=== PATIENT | female | born 1995 | race African-American/Black ===

== ENCOUNTER 2018-11-04 14:53 | Inpatient (IN) | payer SELFPAY ==
[2018-11-04 15:24] LABS: #Lymphocytes 1.2 thou/uL (1.20-3.40); #Monocytes 0.9 thou/uL (0.11-0.59); %Basophils 0.2 % (0.0-1.0); %Eosinophils 0.2 % (0.0-10.0); %Lymphocytes 16.3 % (21.0-51.0); %Monocytes 12.9 % (0.0-10.0); %Neutrophils 70.3 % (42.0-75.0); Hemoglobin 13.2 g/dL (12.0-16.0); Mean Corpuscular Hemoglobin 30.9 pg (27.0-31.0); Mean Corpuscular Volume 93.5 fL (78.0-98.0); Mean Platelet Volume 9.2 fL (7.4-10.4); Platelet Count 152 thou/uL (130-400); RBC Distribution Width 12.4 % (11.5-14.5); Red Blood Cell (RBC) Count 4.28 mill/uL (4.20-5.40); White Blood Cell (WBC) Count 7.1 thou/uL (4.8-10.8)
[2018-11-04] MEDS ORDERED: Ondansetron PF 4 MG/2 ML Vial ONE (15:24)
[2018-11-04] MEDS ORDERED: Morphine 4 MG/ML VIAL ONE (15:24)
[2018-11-04] MEDS ORDERED: cefTRIAXone\\ROCEPHIN 2 GM VIAL ONE (15:34)
[2018-11-04 15:37] LABS: BHCG - Serum Negative (NEGATIVE); Pregs Control Background? CLEAR/WHITE (CLR/WHITE); Pregs Control Bar Appear? YES (CONTROL BAR)
[2018-11-04 15:49] LABS: ALT (SGPT) 348 U/L (8-55); AST (SGOT) 338 U/L (5-34); Albumin 3.7 g/dL (3.5-5.0); Alkaline Phosphatase 144 U/L (40-150); Anion Gap 15 mmol/L (10-20); BUN (Urea Nitrogen) 4 mg/dL (7.0-18.7); Bilirubin, Total 1.1 mg/dL (0.2-1.2); CK (CPK) 290 U/L (29-168); Calc. Creatinine Clearance 0 mL/min (70-130); Calcium 9.2 mg/dL (7.8-10.44); Carbon Dioxide 23 mmol/L (22-29); Chloride 97 mmol/L (98-107); Estimated GFR-MDRD 54; Globulin 3.9 g/dL (2.4-3.5); Glucose 140 mg/dL (70-105); Lipase 11 U/L (8-78); Protein, Total 7.6 g/dL (6.0-8.3); Sodium 132 mmol/L (136-145)
[2018-11-04 15:54] LABS: Potassium 2.9 mmol/L (3.5-5.1)
--- NOTE | 2018-11-04 16:02 | CT ---
CT ABDOMEN AND PELVIS WITHOUT CONTRAST: HISTORY: Left flank pain radiating to the left lower quadrant. Hematuria. Chills. FINDINGS: Absence of oral and IV contrast reduces the sensitivity of the exam, particularly for evaluation of s olid organs involved. The lung bases are clear. No free air or free fluid is seen in the abdomen or pelvis. Tiny gallstones are present. There are tiny calculi in the left kidney. No calculi are se en in the right kidney, either ureter, or the urinary bladder. No hydroureteronephrosis is seen on e ither side. The appendix is normal. Uterus and ovaries are present. No acute osseous abnormalities are seen. IMPRESSION: 1. Tiny, nonobstructing left renal calculi. 2. Cholelithiasis. POS: [facility]
[2018-11-04] MEDS ORDERED: Potassium Chloride 20 MEQ TAB ONE (16:10)
[2018-11-04] MEDS ORDERED: Ketorolac Tromethamine 30 MG/ML VIAL ONE (16:32)
--- NOTE | 2018-11-04 16:54 | RAD ---
Portable chest: HISTORY: Abdominal pain COMPARISON: none FINDINGS: Lung greenberg are clear. Heart and mediastinum appear unremarkable. Vascularity is normal. Visualized osseous structures unremarkable. IMPRESSION: No acute finding
[2018-11-04 17:02] LABS: Bilirubin Negative (Negative); Blood, Urine Trace (Negative); Clarity CLEAR (Clear); Glucose, Urine (Dipstick) Negative (Negative); Leukocyte Small (Negative); Nitrite Negative (Negative); Protein, Urine (Dipstick) 30 mg/dL (Neg-Trace); Specific Gravity, Urine 1.008 (1.002-1.036); Urobilinogen > or = 8.0 mg/dL (0.2-1.0)
[2018-11-04 17:04] LABS: Bacteria/HPF None Seen HPF (None Seen); Hyaline Casts/LPF 0-3 HYALINE CAST LPF (0-3 Hyaline); Pathc Cast-AUWi Flag 0.27 (0-2.49); Squamous Epithelial 0-3 HPF (0-3)
[2018-11-04 19:22] LABS: Lactic Acid 1.3 mmol/L (0.5-2.2)
[2018-11-04] MEDS ORDERED: Sodium Chloride 0.9% 1,000 ML IV SCH (19:37)
[2018-11-04] MEDS ORDERED: Ondansetron PF 4 MG/2 ML Vial IVP PRN (19:37)
[2018-11-04] MEDS ORDERED: Acetaminophen 325 MG TAB PO PRN (19:37)
[2018-11-04] MEDS ORDERED: Ondansetron ODT 4 MG TAB SL PRN (19:37)
[2018-11-04 19:52] VITALS: BMI 31.5
[2018-11-04] MEDS ORDERED: Cyclobenzaprine 10 MG TAB PO SCH (22:45)
[2018-11-04] MEDS ORDERED: NS 0.9% w/ 40 MEQ KCL 1,000 ML IV SCH (22:45)
[2018-11-04] MEDS ORDERED: Potassium Chloride 10 MEQ in Premix Bag 1 BAG IVPB SCH (22:45)
[2018-11-04] MEDS: Morphine 4 MG/ML VIAL SLOW IVP PRN (22:48)
--- NOTE | 2018-11-05 02:26 | HP ---
CHIEF COMPLAINT: Left flank pain, fevers. HISTORY OF PRESENT ILLNESS: The patient is a 23-year-old female, who comes into the hospital with complaints of 3 days of left-sided flank pain, nausea, and some fevers. The patient stated that for the past 3 days, she has been having some left-sided flank pain radiating to her left lower quadrant. She has also had some dysuria, also had some fevers and chills. She also reports to be having some constipation. Denies any recent oral medications. Denies any history of kidney stones. Denies any sick contacts. The patient states that her pain is sharp in nature and radiates from her left flank area to her left abdomen area and it feels like a sharp stabbing pain. She has been taking Tylenol at home, which has not really been helping her pain. PAST MEDICAL HISTORY: She has no significant past medical history. FAMILY HISTORY: History of high blood pressure and diabetes. PAST SURGICAL HISTORY: She has no surgical history. ALLERGIES: SHE HAS NO KNOWN DRUG ALLERGIES. MEDICATIONS: She takes none. SOCIAL HISTORY: She smokes a pack a day. Denies any alcohol use or drug use. She is a full code. Lives with her family. REVIEW OF SYSTEMS: All negative except for the ones mentioned above in the HPI. PHYSICAL EXAMINATION: VITAL SIGNS: Temperature 98.0, 89, 18, 98% on room air, and 97/68. GENERAL: She is awake, alert, and oriented x3, appears in mild distress. HEENT: Normocephalic and atraumatic. No lymphadenopathy noted. Pupils are equal and reactive to light. CV: S1 and S2 present. No murmurs, rubs, or gallops. LUNGS: Clear to auscultation. No rhonchi or wheezes noted. ABDOMEN: Soft. Bowel sounds are present x2. She does have pain upon palpation to her left lower quadrant and left upper quadrant and some mild pain around her epigastric area. She also has pain upon palpation to her left flank area. NEUROVASCULAR: No focal deficits noted. SKIN: No cuts, lesions or bruises noted. LABORATORY RESULTS: As of the following: She has a white count of 7.1, hemoglobin of 13.2, hematocrit of 40.0, and platelets of 152. Chemistry; sodium of 132, potassium of 2.9, BUN of 4, and creatinine 1.22. AST is 338, ALT of 348, CK of 290. test was negative. Bilirubin was normal. Lactic acid was 3.7. ASSESSMENT AND PLAN: The patient is a very pleasant 23-year-old female, who comes into the hospital with complaints of abdominal pain. 1. Sepsis, unclear etiology, possibly could be from urinary tract infection. Her urine has been cultured and sent. I will start on prophylactic antibiotics. She did have CT of abdomen and pelvis that indicated a nonobstructing left renal calculi. Otherwise, she has some cholelithiasis. I will also start her on some IV hydration, give her some pain medications. Blood cultures have been collected. We will continue to monitor. 2. Acute kidney injury. We will hydrate her and see if that improves. We will also monitor intake and output. 3. Hypokalemia. We will replace the potassium and add some potassium in her IV. 4. Elevated LFTs. I will get a right upper quadrant ultrasound. We will also check hepatitis panel. The patient denies taking any [id number] medications and she is not on any statins. 5. Deep venous thrombosis prophylaxis. We will put the patient on some SCDs. 6. Her symptoms could be viral versus bacterial, possibility of urinary tract infection. However, her urine culture is pending. We will continue to monitor her and start her on some broad-spectrum antibiotics and start her on some IV fluids, and continue to monitor her. Thank you very much. Job ID: [id number]
[2018-11-05] MEDS ORDERED: Ondansetron PF 4 MG/2 ML Vial IVP PRN (05:43)
[2018-11-05] MEDS ORDERED: Acetaminophen 325 MG TAB PO PRN (05:43)
[2018-11-05 06:25] LABS: HBCM Index 0.11 S/CO (0-0.79); HBSAg Index 0.35 S/CO (0-0.99); Hep A IgM AB Non-Reactive (NonReactive); Hep A IgM S/CO 0.18 S/CO (0-0.79); Hep B Surf Ag Non-Reactive S/CO (NonReactive); Hep C IgG Ab Non-Reactive (NonReactive); Hep C Index 0.08 S/CO (0-0.79); Hepatitis B Core IgM Abs Non-Reactive (NonReactive)
[2018-11-05] MEDS ORDERED: Ondansetron ODT 4 MG TAB PO PRN (07:29)
[2018-11-05] MEDS ORDERED: Diabetic Tussin 200 MG/10 ML UDCUP PO PRN (07:29)
[2018-11-05] MEDS ORDERED: Zolpidem Tartrate 5 MG TAB PO PRN (07:29)
[2018-11-05] MEDS ORDERED: Artificial Tears 18 DROP/0.9 ML EA EYE PRN (07:29)
[2018-11-05] MEDS ORDERED: Loratadine 10 MG TAB PO PRN (07:29)
[2018-11-05] MEDS ORDERED: Sodium Chloride 0.65% Nasal 44 ML BOT EA NARE PRN (07:29)
[2018-11-05] MEDS ORDERED: Eucerin (Mineral Oil/Petrolatum,White) 30 gm Jar TOP PRN (07:29)
[2018-11-05] MEDS ORDERED: Calcium Carbonate 500 MG ChewTAB PO PRN (07:29)
[2018-11-05] MEDS ORDERED: Loperamide HCl 2 MG CAP PO PRN (07:29)
[2018-11-05] MEDS ORDERED: Cepastat Lozenges 1 LOZ PO PRN (07:29)
--- NOTE | 2018-11-05 07:37 | ULT ---
GALLBLADDER ULTRASOUND: CLINICAL INDICATION: Elevated liver function enzymes. FINDINGS: No focal hepatic lesion. There is evidence of cholelithiasis with associated mild, posterior acousti c shadowing. Gallbladder wall, as visualized, is within normal limits. The common duct measures 3 m m, normal. Ruiz's sign is reported as negative by the heel shaver. No ascites. IMPRESSION: Cholelithiasis. No acute cholecystitis is evident, sonographically. Correlate with clinical assessm ent. POS: ED
[2018-11-05] MEDS: Senokot S 8.6-50 MG TAB PO SCH ×2 (08:15→19:59)
[2018-11-05] MEDS: NS 0.9% w/ 40 MEQ KCL 1,000 ML IV SCH ×2 (08:20→16:47)
--- NOTE | 2018-11-05 10:57 | PDOC.PN ---
- Subjective Encounter Start Date: 11/05/18 Encounter Start Time: 09:10 -: old records requested/rev pt has left side flank pain, dysuria, and fever - Objective Resuscitation Status - Order Detail: 11/05/18 07:30 Resuscitation Status Routine Resuscitation Status: FULL: Full Resuscitation MAR Reviewed: Yes Vital Signs & Weight: Vital Signs (12 hours) Temp Pulse Resp BP Pulse Ox 11/05/18 08:04 99.8 F H 95 16 114/75 96 11/05/18 08:00 96 11/05/18 04:00 98.7 F 79 16 104/73 95 11/05/18 00:27 103.1 F H 106 H 16 104/67 98 Weight Weight 201 lb 8 oz I&O: 11/04/18 11/05/18 11/06/18 06:59 06:59 06:59 Intake Total 1635 400 Balance 1635 400 Result Diagrams: 11/04/18 15:19 11/04/18 15:19 Radiology Reviewed by me: Yes (US abdomen noted) EKG Reviewed by me: Yes Phys Exam - Physical Examination Constitutional: NAD HEENT: PERRLA, moist MMs, sclera anicteric Neck: no JVD, supple Respiratory: no wheezing, no rales, no rhonchi Cardiovascular: RRR, no significant murmur, no rub Gastrointestinal: soft, no distention, positive bowel sounds left CVA tenderness pt does not have any RUQ tenderness Musculoskeletal: no edema, pulses present Neurological: non-focal, normal sensation, moves all 4 limbs Lymphatic: no nodes Psychiatric: normal affect, A&O x 3 Skin: no rash, normal turgor Dx/Plan (1) Acute pyelonephritis Code(s): N10 - ACUTE PYELONEPHRITIS Status: Acute (2) MICHEAL (acute kidney injury) Code(s): N17.9 - ACUTE KIDNEY FAILURE, UNSPECIFIED Status: Acute (3) Abnormal LFTs Code(s): R94.5 - ABNORMAL RESULTS OF LIVER FUNCTION STUDIES Status: Acute (4) Hypokalemia Code(s): E87.6 - HYPOKALEMIA Status: Acute (5) Lactic acidosis Code(s): E87.2 - ACIDOSIS Status: Acute (6) Sepsis Code(s): A41.9 - SEPSIS, UNSPECIFIED ORGANISM Status: Acute (7) Cholelithiases Code(s): K80.20 - CALCULUS OF GALLBLADDER W/O CHOLECYSTITIS W/O OBSTRUCTION Status: Chronic (8) Obesity (BMI 30.0-34.9) Code(s): E66.9 - OBESITY, UNSPECIFIED Status: Chronic - Plan cont current plan of care, continue antibiotics * continue IVF * continue rocephin and add levaquin * replace potassium * follow culture * pain control with morphin * repeat labs tomorrow. Review of Systems - Review of Systems Constitutional: fever, weakness. negative: chills, sweats, malaise, other Eyes: negative: Pain, Vision Change, Conjunctivae Inflammation, Eyelid Inflammation, Redness, Other ENT: negative: Ear Pain, Ear Discharge, Nose Pain, Nose Discharge, Nose Congestion, Mouth Pain, Mouth Swelling, Throat Pain, Throat Swelling, Other Respiratory: negative: Cough, Dry, Shortness of Breath, Hemoptysis, SOB with Excertion, Pleuritic Pain, Sputum, Wheezing Cardiovascular: negative: chest pain, palpitations, orthopnea, paroxysmal nocturnal dyspnea, edema, light headedness, other Gastrointestinal: Nausea. negative: Vomiting, Diarrhea, Constipation, Melena, Hematochezia, Other Genitourinary: Dysuria, Frequency Musculoskeletal: negative: Neck Pain, Shoulder Pain, Arm Pain, Back Pain, Hand Pain, Leg Pain, Foot Pain, Other Skin: negative: Rash, Lesions, Erick, Bruising, Other Neurological: negative: Weakness, Numbness, Incoordination, Change in Speech, Confusion, Seizures, Other - Medications/Allergies Allergies/Adverse Reactions: Allergies Allergy/AdvReac Type Severity Reaction Status Date / Time No Known Allergies Allergy Unverified 11/04/18 19:36 Medications: Current Medications Acetaminophen (Tylenol) 650 mg PO Q8H PRN PRN Reason: Mild-Moderate Pain (1-5) Last Admin: 11/05/18 08:32 Dose: 650 mg Artificial Tears (Tears Naturale) 2 drop EA EYE PRN PRN PRN Reason: Dry Eyes Bisacodyl (Dulcolax) 10 mg PO DAILYPRN PRN PRN Reason: Constipation Calcium Carbonate (Tums) 1,000 mg PO Q4H PRN PRN Reason: Heartburn or Indigestion Guaifenesin (Robitussin Sf) 200 mg PO Q4H PRN PRN Reason: Cough Ceftriaxone Sodium 1 gm/ (Sodium Chloride) 100 mls @ 200 mls/hr IVPB 1600 [facility] Levofloxacin 500 mg/ Device 100 mls @ 100 mls/hr IVPB 0800 [facility] Last Admin: 11/05/18 08:15 Dose: 100 mls Potassium Chloride/Sodium Chloride (Ns 0.9% W/ 40 Meq Kcl) 1,000 mls @ 125 mls/ hr IV .Q8H [facility] Last Admin: 11/05/18 08:20 Dose: Not Given Loperamide HCl (Imodium) 2 mg PO PRN PRN PRN Reason: Diarrhea/Loose Stools Loratadine (Claritin) 10 mg PO DAILYPRN PRN PRN Reason: Sinus Symptoms Mineral Oil/White Petrolatum (Eucerin Cream) 0 gm TOP BIDPRN PRN PRN Reason: Dry Skin Morphine Sulfate (Morphine) 4 mg SLOW IVP Q4H PRN PRN Reason: Mild-Moderate Pain (1-5) Last Admin: 11/04/18 22:48 Dose: 4 mg Ondansetron HCl (Zofran) 4 mg IVP Q6H PRN PRN Reason: Nausea/Vomiting Ondansetron HCl (Zofran Odt) 4 mg PO Q6H PRN PRN Reason: Nausea/Vomiting Senna/Docusate Sodium (Senokot S) 1 tab PO BID [facility] Last Admin: 11/05/18 08:15 Dose: 1 tab Sodium Chloride (Flush - Normal Saline) 10 ml IVF Q12HR [facility] Last Admin: 11/05/18 08:23 Dose: Not Given Sodium Chloride (Flush - Normal Saline) 10 ml IVF PRN PRN PRN Reason: Saline Flush Sodium Chloride ([place] Nasal [place] 0.65%) 0 ml EA NARE QIDPRN PRN PRN Reason: Nasal Congestion Throat Lozenges (Cepastat Lozenges) 1 bhakti PO Q2H PRN PRN Reason: Sore Throat Zolpidem Tartrate (Ambien) 5 mg PO HSPRN PRN PRN Reason: Insomnia
[2018-11-05] MEDS: Morphine 4 MG/ML VIAL SLOW IVP PRN (11:20)
[2018-11-05] MEDS ORDERED: Ketorolac Tromethamine 30 MG/ML VIAL IVP SCH (13:15)
[2018-11-05] MEDS: cefTRIAXone\\ROCEPHIN 1 GM in Sodium Chloride 0.9% 100 ML IVPB SCH (16:47)
[2018-11-05] MEDS: Ketorolac Tromethamine 30 MG/ML VIAL IVP PRN (19:57)
[2018-11-06] MEDS: NS 0.9% w/ 40 MEQ KCL 1,000 ML IV SCH ×3 (00:53→20:16)
[2018-11-06] MEDS: Ketorolac Tromethamine 30 MG/ML VIAL IVP PRN ×2 (03:58→19:44)
[2018-11-06 06:58] LABS: Band 4 % (5-11); Hemoglobin 11.9 g/dL (12.0-16.0); Lymphocytes 33 % (21-51); MDiff Complete? YES; Mean Corpuscular HGB CONC 32.4 g/dL (32.0-36.0); Mean Corpuscular Hemoglobin 30.8 pg (27.0-31.0); Mean Corpuscular Volume 94.9 fL (78.0-98.0); Mean Platelet Volume 9.7 fL (7.4-10.4); Monocytes 16 % (0-10); Neutrophil 47 % (42-75); Platelet Count 145 thou/uL (130-400); Platelet Morphology Comment Appears Adequate; RBC Distribution Width 12.5 % (11.5-14.5); RBC Morphology Normal; Red Blood Cell (RBC) Count 3.87 mill/uL (4.20-5.40); White Blood Cell (WBC) Count 4.9 thou/uL (4.8-10.8)
[2018-11-06 07:04] LABS: ALT (SGPT) 302 U/L (8-55); AST (SGOT) 267 U/L (5-34); Alkaline Phosphatase 154 U/L (40-150); Anion Gap 11 mmol/L (10-20); BUN (Urea Nitrogen) 5 mg/dL (7.0-18.7); Bilirubin, Total 0.6 mg/dL (0.2-1.2); Calc. Creatinine Clearance 161 mL/min (70-130); Calcium 8.5 mg/dL (7.8-10.44); Carbon Dioxide 20 mmol/L (22-29); Chloride 108 mmol/L (98-107); Estimated GFR-MDRD Greater than 90; Glucose 88 mg/dL (70-105); Potassium 4.2 mmol/L (3.5-5.1); Sodium 135 mmol/L (136-145)
[2018-11-06] MEDS: Senokot S 8.6-50 MG TAB PO SCH ×2 (08:52→20:14)
--- NOTE | 2018-11-06 10:42 | PDOC.PN ---
- Subjective Encounter Start Date: 11/06/18 Encounter Start Time: 09:40 this morning she was having headache and left side back pain, that improved with toradol, today she feels bloated and has some pain in RUQ - Objective Resuscitation Status - Order Detail: 11/05/18 07:30 Resuscitation Status Routine Resuscitation Status: FULL: Full Resuscitation MAR Reviewed: Yes Vital Signs & Weight: Vital Signs (12 hours) Temp Pulse Resp BP Pulse Ox 11/06/18 08:00 97.9 F 75 18 91/60 98 11/06/18 04:33 99.9 F H 85 16 101/66 99 Weight Admit Weight 201 lb 8 oz Weight 201 lb 8 oz I&O: 11/05/18 11/06/18 11/07/18 06:59 06:59 06:59 Intake Total 1635 4983 400 Balance 1635 4983 400 Result Diagrams: 11/06/18 06:21 11/06/18 06:21 Phys Exam - Physical Examination Constitutional: NAD HEENT: PERRLA, moist MMs, sclera anicteric Neck: no JVD, supple Respiratory: no wheezing, no rales, no rhonchi Cardiovascular: RRR, no significant murmur, no rub Gastrointestinal: soft, no distention, positive bowel sounds RUQ discomfort Musculoskeletal: no edema, pulses present Neurological: non-focal, normal sensation, moves all 4 limbs Lymphatic: no nodes Psychiatric: normal affect, A&O x 3 Skin: no rash, normal turgor Dx/Plan (1) MICHEAL (acute kidney injury) Code(s): N17.9 - ACUTE KIDNEY FAILURE, UNSPECIFIED Status: Acute (2) Abnormal LFTs Code(s): R94.5 - ABNORMAL RESULTS OF LIVER FUNCTION STUDIES Status: Acute (3) Hypokalemia Code(s): E87.6 - HYPOKALEMIA Status: Acute (4) Lactic acidosis Code(s): E87.2 - ACIDOSIS Status: Acute (5) Sepsis Code(s): A41.9 - SEPSIS, UNSPECIFIED ORGANISM Status: Acute (6) Cholelithiases Code(s): K80.20 - CALCULUS OF GALLBLADDER W/O CHOLECYSTITIS W/O OBSTRUCTION Status: Chronic (7) Obesity (BMI 30.0-34.9) Code(s): E66.9 - OBESITY, UNSPECIFIED Status: Chronic - Plan cont current plan of care, continue antibiotics * clinically improving * pain controlled * continue IVF * doubt has any gall bladder problem but will get expert opinion from GI as her LFT also abnormal * medication reviewed as below * symptomatic treatment * so far culture negative. Review of Systems - Review of Systems Eyes: negative: Pain, Vision Change, Conjunctivae Inflammation, Eyelid Inflammation, Redness, Other ENT: negative: Ear Pain, Ear Discharge, Nose Pain, Nose Discharge, Nose Congestion, Mouth Pain, Mouth Swelling, Throat Pain, Throat Swelling, Other Respiratory: negative: Cough, Dry, Shortness of Breath, Hemoptysis, SOB with Excertion, Pleuritic Pain, Sputum, Wheezing Cardiovascular: negative: chest pain, palpitations, orthopnea, paroxysmal nocturnal dyspnea, edema, light headedness, other Gastrointestinal: Nausea, Abdominal Pain. negative: Vomiting, Diarrhea, Constipation, Melena, Hematochezia, Other Genitourinary: negative: Dysuria, Frequency, Incontinence, Hematuria, Retention , Other Musculoskeletal: negative: Neck Pain, Shoulder Pain, Arm Pain, Back Pain, Hand Pain, Leg Pain, Foot Pain, Other Skin: negative: Rash, Lesions, Erick, Bruising, Other - Medications/Allergies Allergies/Adverse Reactions: Allergies Allergy/AdvReac Type Severity Reaction Status Date / Time No Known Allergies Allergy Unverified 11/04/18 19:36 Medications: Current Medications Acetaminophen (Tylenol) 650 mg PO Q8H PRN PRN Reason: Mild-Moderate Pain (1-5) Last Admin: 11/05/18 08:32 Dose: 650 mg Artificial Tears (Tears Naturale) 2 drop EA EYE PRN PRN PRN Reason: Dry Eyes Bisacodyl (Dulcolax) 10 mg PO DAILYPRN PRN PRN Reason: Constipation Calcium Carbonate (Tums) 1,000 mg PO Q4H PRN PRN Reason: Heartburn or Indigestion Guaifenesin (Robitussin Sf) 200 mg PO Q4H PRN PRN Reason: Cough Ceftriaxone Sodium 1 gm/ (Sodium Chloride) 100 mls @ 200 mls/hr IVPB 1600 [facility] Last Admin: 11/05/18 16:47 Dose: 100 mls Levofloxacin 500 mg/ Device 100 mls @ 100 mls/hr IVPB 0800 [facility] Last Admin: 11/06/18 08:50 Dose: 100 mls Potassium Chloride/Sodium Chloride (Ns 0.9% W/ 40 Meq Kcl) 1,000 mls @ 125 mls/ hr IV .Q8H [facility] Last Admin: 11/06/18 09:21 Dose: 1,000 mls Ketorolac Tromethamine (Toradol) 15 mg IVP Q6H PRN PRN Reason: Pain Stop: 11/10/18 19:01 Last Admin: 11/06/18 03:58 Dose: 15 mg Loperamide HCl (Imodium) 2 mg PO PRN PRN PRN Reason: Diarrhea/Loose Stools Loratadine (Claritin) 10 mg PO DAILYPRN PRN PRN Reason: Sinus Symptoms Mineral Oil/White Petrolatum (Eucerin Cream) 0 gm TOP BIDPRN PRN PRN Reason: Dry Skin Morphine Sulfate (Morphine) 4 mg SLOW IVP Q4H PRN PRN Reason: Mild-Moderate Pain (1-5) Last Admin: 11/05/18 11:20 Dose: 4 mg Ondansetron HCl (Zofran) 4 mg IVP Q6H PRN PRN Reason: Nausea/Vomiting Last Admin: 11/05/18 19:57 Dose: 4 mg Ondansetron HCl (Zofran Odt) 4 mg PO Q6H PRN PRN Reason: Nausea/Vomiting Senna/Docusate Sodium (Senokot S) 1 tab PO BID [facility] Last Admin: 11/06/18 08:52 Dose: 1 tab Sodium Chloride (Flush - Normal Saline) 10 ml IVF Q12HR [facility] Last Admin: 11/06/18 08:52 Dose: Not Given Sodium Chloride (Flush - Normal Saline) 10 ml IVF PRN PRN PRN Reason: Saline Flush Sodium Chloride ([place] Nasal [place] 0.65%) 0 ml EA NARE QIDPRN PRN PRN Reason: Nasal Congestion Throat Lozenges (Cepastat Lozenges) 1 bhakti PO Q2H PRN PRN Reason: Sore Throat Zolpidem Tartrate (Ambien) 5 mg PO HSPRN PRN PRN Reason: Insomnia
[2018-11-06] MEDS ORDERED: ISOVUE-370 76%-LOCM 1 ML ONE (11:20)
[2018-11-06] MEDS: cefTRIAXone\\ROCEPHIN 1 GM in Sodium Chloride 0.9% 100 ML IVPB SCH (16:51)
--- NOTE | 2018-11-06 19:17 | CT ---
CT ABDOMEN AND PELVIS WITH IV CONTRAST: Technique: Multiple axial tomograms were obtained through the abdomen and pelvis with IV enhancement. Oral contrast was administered. Indications: Left flank pain. Concern for pyelonephritis. History of gallstones and elevated liver fu nction test. Correlation made to noncontrast CT of 11-04-18. FINDINGS: Lung bases are clear. The liver, spleen, and pancreas appear unremarkable. Gallbladder appears unremarkable by CT. There ar e tiny densities in the dependent gallbladder, probably representing gallstones which have been previ ously confirmed on ultrasound. The adrenal glands are normal. Review of the urinary tract reveals an abnormal area of density involving the left lateral renal kathryn ex measuring up to 4 cm. This has a wedge shape on axial image. It is somewhat heterogeneous and low attenuation compared to the normal cortex. There is no evidence of hydronephrosis. There is no evidence of urinary tract calculus or obstruction . Urinary bladder is unremarkable. Small bowel loops are normal caliber. Appendix appears normal. There is prominent stool in the right colon and transverse colon. Nonspecific periaortic lymph nodes are seen. Increase in number of nodes with node sizes measuring up to 1 cm. Images through the pelvis revealed mildly prominent uterus. The adnexal regions are unremarkable. IMPRESSION: Abnormal area of attenuation in the left renal cortex measuring up to 4 cm. Considerations include fo arjun pyelonephritis. The wedge shaped defect could indicate infarct. Neoplasm cannot be excluded. If t here are clinical findings to suggest urinary tract infection, focal pyelonephritis would be suspecte d. Patient should be followed closely for developing renal abscess. Recommend urologic consultation a nd close follow up. POS: [facility]
[2018-11-06] MEDS: Bisacodyl 5 MG TAB PO PRN (20:14)
[2018-11-07] MEDS: NS 0.9% w/ 40 MEQ KCL 1,000 ML IV SCH ×5 (00:10→23:30)
[2018-11-07] MEDS: Ketorolac Tromethamine 30 MG/ML VIAL IVP PRN (06:34)
[2018-11-07 07:21] LABS: ALT (SGPT) 320 U/L (8-55); AST (SGOT) 206 U/L (5-34); Albumin 3.2 g/dL (3.5-5.0); Alkaline Phosphatase 174 U/L (40-150); Bilirubin, Direct 0.2 mg/dL (0.1-0.3); Bilirubin, Total 0.4 mg/dL (0.2-1.2); Protein, Total 6.5 g/dL (6.0-8.3)
[2018-11-07 07:45] LABS: Band 7 % (5-11); Hemoglobin 12.2 g/dL (12.0-16.0); Lymphocytes 60 % (21-51); MDiff Complete? YES; Mean Corpuscular HGB CONC 32.5 g/dL (32.0-36.0); Mean Corpuscular Hemoglobin 30.7 pg (27.0-31.0); Mean Corpuscular Volume 94.5 fL (78.0-98.0); Mean Platelet Volume 9.7 fL (7.4-10.4); Monocytes 5 % (0-10); Neutrophil 28 % (42-75); Platelet Count 193 thou/uL (130-400); Platelet Morphology Comment Appears Adequate; RBC Distribution Width 12.6 % (11.5-14.5); Red Blood Cell (RBC) Count 3.98 mill/uL (4.20-5.40); White Blood Cell (WBC) Count 6.2 thou/uL (4.8-10.8)
[2018-11-07] MEDS: Senokot S 8.6-50 MG TAB PO SCH ×2 (08:05→20:20)
--- NOTE | 2018-11-07 09:46 | CON ---
DATE OF CONSULTATION: 11/06/2018 REASON FOR CONSULT: Abnormal liver enzymes. HISTORY OF PRESENT ILLNESS: Ms. Colin is a 23-year-old female who has begun feeling sick about 5 days prior to admission with dysuria, frequency. She describes she was having burning with urination, did not want to urinate or have to urinate frequently. Gradually, she began to have some pain in her left flank along her spinal left side and then some quivering in the left flank more toward the front of the abdomen. She thought this was gas, so she tried to alleviate gas by passing gas, but this just got worse. She ultimately had fever about 102 or 103 at home per her report. She also had been constipated for several days and tried taking a laxative and she took some Tylenol. Her urine was also very dark toward the end of all this, but then pain became unrelenting, and she came to the emergency room. She denied having symptoms like this before, has had no overt hematuria that she saw. There is no known history of kidney stones. Here, she had a temperature of 102.9 on arrival, respirations 34, pulse 106, and blood pressure 123/72. Emergency room physician felt she was in a pretty severe amount of pain. It was reported she had CVA tenderness in the left on admission. She was started on broad-spectrum antibiotics. Blood and urine cultures were obtained, but it is unclear if these were obtained before the antibiotics were given. Her white count was 7.1, her platelets were 152. She had hypokalemia with potassium of 2.9, sodium 132, BUN and creatinine were 4 and 1.22. Her liver tests were noted to be up with a bilirubin of 1.1, AST of 338, ALT of 348, and alkaline phosphatase of 144. Her test was negative. She had a noncontrast CT scan of the abdomen and pelvis which was read out as showing a nonobstructing left kidney stone and gallstones. Because of that, she has received some Toradol, some Levaquin and cultures remain negative. Yesterday, she states when she was examined by the physician he pushed the right upper side and that hurts some. Now that, she has actually been able to eat, had no nausea or vomiting. Ultrasound did show gallstones and she denies ever having any symptoms of typical biliary colic such as postprandial pain or bloating, discomfort, nausea, vomiting, or radiation of pain to the back or on the right side or right flank. PAST MEDICAL HISTORY: None. MEDICATIONS AT HOME: None. PAST SURGICAL HISTORY: None. ALLERGIES: NONE. SOCIAL HISTORY: She does smoke a pack per day. Drinks alcohol occasionally, but does not use drugs. She lives with family. She has mom at the bedside. REVIEW OF SYSTEMS: Negative for dysphagia, odynophagia, melena, hematochezia, or hematemesis. Negative for weight loss or change in bowel function. No adverse symptoms of chronic biliary colic. PRESENT MEDICATIONS: 1. Current Tylenol. 2. Dulcolax. 3. Tums. 4. Toradol. 5. Imodium. 6. Zofran. 7. at 125 an hour. 8. Senokot p.r.n. PHYSICAL EXAMINATION: VITAL SIGNS: T max 101.3 yesterday at 2009 hours, 103.1 at midnight on the and 99.9 on 11/06 at 4:00 a.m., pulse 75, blood pressure 91/60 to 101/66. GENERAL: She is sitting up in bed. She is in no overt distress. Her conjunctivae and sclerae are clear. NECK: Supple without any adenopathy. LUNGS: Clear. HEART: Regular rate and rhythm. No murmurs. ABDOMEN: Soft. There is no rebound or guarding in the right upper quadrant. There is no Ruiz sign. There is no palpable hepatosplenomegaly. There is still tenderness in the left flank site, left flank. IMAGING: CT scan images were reviewed. I feel that the left kidney is a little bit enlarged and with talking to the radiologist, he felt the left kidney was edematous, but that would be consistent with pyelonephritis, but there was no overt ureteral obstruction. Ultrasound does show gallstones. No dilated biliary tree. This is similar to finding on her CAT scan. ASSESSMENT: 1. Likely pyelonephritis although cultures were negative to date. It is unclear if this is because antibiotics were given before cultures were obtained in the emergency room, at that time, it cannot be ascertained. In any event, she has continued to have fever and even yesterday evening had a fever but last night has not had any. She does not appear septic at this time. 2. Elevated liver enzymes. AST and ALT were 338, 348, dropping to 267 and 302 today with a mild elevation of alkaline phosphatase. She does have gallstones with no signs of biliary obstruction. No dilated biliary duct. I suspect this is still primary renal process and probably pyelonephritis. The elevated liver enzymes may be reactive. She does have gallstones, but no overt evidence of choledocholithiasis. No evidence of biliary colic. RECOMMENDATIONS: After reviewing her films with Radiology, they suggest re CT, noncontrast to better delineate what is going on with the left kidney, cultures have been negative. This is reasonable to give us more information about her hepatobiliary tree. If she begins to develop right upper quadrant pain or develops signs of sepsis, we could reconsider the possibility of cholangitis, but this does not seem consistent with any other symptoms thus far during hospitalization. Job ID: [id number]
--- NOTE | 2018-11-07 11:09 | PDOC.PN ---
- Subjective Encounter Start Date: 11/07/18 Encounter Start Time: 09:20 - Objective Resuscitation Status - Order Detail: 11/05/18 07:30 Resuscitation Status Routine Resuscitation Status: FULL: Full Resuscitation MAR Reviewed: Yes Vital Signs & Weight: Vital Signs (12 hours) Temp Pulse Resp BP Pulse Ox 11/07/18 08:00 97.9 F 73 16 91/65 99 Weight Admit Weight 201 lb 8 oz Weight 201 lb 8 oz I&O: 11/06/18 11/07/18 11/08/18 06:59 06:59 06:59 Intake Total 4983 2925 Balance 4983 2925 Result Diagrams: 11/07/18 06:03 11/06/18 06:21 Phys Exam - Physical Examination Constitutional: NAD HEENT: PERRLA, moist MMs, sclera anicteric Neck: no JVD, supple Respiratory: no wheezing, no rales, no rhonchi Cardiovascular: RRR, no significant murmur, no rub Gastrointestinal: soft, no distention, positive bowel sounds CVA tenderness on right side Musculoskeletal: no edema, pulses present Neurological: non-focal, normal sensation, moves all 4 limbs Psychiatric: normal affect, A&O x 3 Skin: no rash, normal turgor Dx/Plan (1) MICHEAL (acute kidney injury) Code(s): N17.9 - ACUTE KIDNEY FAILURE, UNSPECIFIED Status: Resolved (2) Abnormal LFTs Code(s): R94.5 - ABNORMAL RESULTS OF LIVER FUNCTION STUDIES Status: Acute (3) Hypokalemia Code(s): E87.6 - HYPOKALEMIA Status: Acute (4) Lactic acidosis Code(s): E87.2 - ACIDOSIS Status: Resolved (5) Sepsis Code(s): A41.9 - SEPSIS, UNSPECIFIED ORGANISM Status: Acute (6) Cholelithiases Code(s): K80.20 - CALCULUS OF GALLBLADDER W/O CHOLECYSTITIS W/O OBSTRUCTION Status: Chronic (7) Obesity (BMI 30.0-34.9) Code(s): E66.9 - OBESITY, UNSPECIFIED Status: Chronic - Plan cont current plan of care, plan discussed w/ family, continue antibiotics * will consult urology about opinion regarding abnormal CT finding. * updated to mother on phone * continue rocephin and levaquin * medication reviewed as below * symptomatic treatment * clinically improving, culture negative Review of Systems - Review of Systems ENT: negative: Ear Pain, Ear Discharge, Nose Pain, Nose Discharge, Nose Congestion, Mouth Pain, Mouth Swelling, Throat Pain, Throat Swelling, Other Respiratory: negative: Cough, Dry, Shortness of Breath, Hemoptysis, SOB with Excertion, Pleuritic Pain, Sputum, Wheezing Cardiovascular: negative: chest pain, palpitations, orthopnea, paroxysmal nocturnal dyspnea, edema, light headedness, other Gastrointestinal: negative: Nausea, Vomiting, Abdominal Pain, Diarrhea, Constipation, Melena, Hematochezia, Other Genitourinary: negative: Dysuria, Frequency, Incontinence, Hematuria, Retention , Other Musculoskeletal: negative: Neck Pain, Shoulder Pain, Arm Pain, Back Pain, Hand Pain, Leg Pain, Foot Pain, Other - Medications/Allergies Allergies/Adverse Reactions: Allergies Allergy/AdvReac Type Severity Reaction Status Date / Time No Known Allergies Allergy Unverified 11/04/18 19:36 Medications: Current Medications Acetaminophen (Tylenol) 650 mg PO Q8H PRN PRN Reason: Mild-Moderate Pain (1-5) Last Admin: 11/05/18 08:32 Dose: 650 mg Artificial Tears (Tears Naturale) 2 drop EA EYE PRN PRN PRN Reason: Dry Eyes Bisacodyl (Dulcolax) 10 mg PO DAILYPRN PRN PRN Reason: Constipation Last Admin: 11/06/18 20:14 Dose: 10 mg Calcium Carbonate (Tums) 1,000 mg PO Q4H PRN PRN Reason: Heartburn or Indigestion Last Admin: 11/06/18 20:14 Dose: 1,000 mg Guaifenesin (Robitussin Sf) 200 mg PO Q4H PRN PRN Reason: Cough Ceftriaxone Sodium 1 gm/ (Sodium Chloride) 100 mls @ 200 mls/hr IVPB 1600 KENN Last Admin: 11/06/18 16:51 Dose: 100 mls Levofloxacin 500 mg/ Device 100 mls @ 100 mls/hr IVPB 0800 KENN Last Admin: 11/07/18 08:05 Dose: 100 mls Potassium Chloride/Sodium Chloride (Ns 0.9% W/ 40 Meq Kcl) 1,000 mls @ 125 mls/ hr IV .Q8H KENN Last Admin: 11/07/18 08:06 Dose: Not Given Ketorolac Tromethamine (Toradol) 15 mg IVP Q6H PRN PRN Reason: Pain Stop: 11/10/18 19:01 Last Admin: 11/07/18 06:34 Dose: 15 mg Loperamide HCl (Imodium) 2 mg PO PRN PRN PRN Reason: Diarrhea/Loose Stools Loratadine (Claritin) 10 mg PO DAILYPRN PRN PRN Reason: Sinus Symptoms Mineral Oil/White Petrolatum (Eucerin Cream) 0 gm TOP BIDPRN PRN PRN Reason: Dry Skin Morphine Sulfate (Morphine) 4 mg SLOW IVP Q4H PRN PRN Reason: Mild-Moderate Pain (1-5) Last Admin: 11/05/18 11:20 Dose: 4 mg Ondansetron HCl (Zofran) 4 mg IVP Q6H PRN PRN Reason: Nausea/Vomiting Last Admin: 11/05/18 19:57 Dose: 4 mg Ondansetron HCl (Zofran Odt) 4 mg PO Q6H PRN PRN Reason: Nausea/Vomiting Senna/Docusate Sodium (Senokot S) 1 tab PO BID [facility] Last Admin: 11/07/18 08:05 Dose: 1 tab Sodium Chloride (Flush - Normal Saline) 10 ml IVF Q12HR [facility] Last Admin: 11/06/18 20:14 Dose: Not Given Sodium Chloride (Flush - Normal Saline) 10 ml IVF PRN PRN PRN Reason: Saline Flush Sodium Chloride ([place] Nasal [place] 0.65%) 0 ml EA NARE QIDPRN PRN PRN Reason: Nasal Congestion Throat Lozenges (Cepastat Lozenges) 1 bhakti PO Q2H PRN PRN Reason: Sore Throat Zolpidem Tartrate (Ambien) 5 mg PO HSPRN PRN PRN Reason: Insomnia
--- NOTE | 2018-11-07 12:02 | PRG ---
DATE OF SERVICE: 11/07/2018 SUBJECTIVE: Ms. Colin still has left flank pain. She denies any right upper quadrant pain or difficulty with eating. OBJECTIVE: VITAL SIGNS: Temperature max 101.3 on the 18th, last night 99.9, presently 97, pulse 73, blood pressure 91/65 to 104/72. ABDOMEN: Nontender. 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 LABORATORY DATA: White count 6.2, hemoglobin 12.2, platelet count 193. Sodium 135, potassium 4.2. Liver test today, AST 206, ALT 320, alkaline phosphatase 174. IMAGING STUDIES: CT scan of the abdomen and pelvis with contrast yesterday revealed normal liver, spleen, and pancreas. Gallbladder showed some small stones in the dependent portion, but no overt ductal dilatation or inflammation. The liver appeared abnormal. A 4 cm abnormal area of density wedge-shaped in the left kidney, which the radiologist felt was possibly early abscess versus infarction versus tumor with lymph nodes up to a centimeter in size in periaortic region. ASSESSMENT: Elevated liver enzymes. This maybe related to acute renal process and occasionally this can be seen. It could be generated from the liver, especially in case of infarction or abscess. There are gallstones with no signs of biliary obstruction. No biliary symptoms and no liver abnormalities. Hepatitis A, B, and C serology has been negative. RECOMMENDATIONS: I would have Urology evaluate this patient. ID may need to see her as well for consideration of IV antibiotics. Unfortunately, all cultures came back negative. It maybe that these were drawn and obtained after antibiotics were started. Even her liver function tests should be monitored. We will continue to follow along with you. Job ID: [id number]
--- NOTE | 2018-11-07 23:53 | CON ---
DATE OF CONSULTATION: 11/07/2018 REASON FOR CONSULTATION: Left-sided flank pain, pyelonephritis. HISTORY OF PRESENT ILLNESS: Ms. Colin is a 23-year-old female who presented to the emergency room on 11/04/2018 with fever, left flank pain, and dysuria. Since admission, her temperature has been as high as 103. She had a urine culture performed on admission, interestingly it was negative. She had classic signs and symptoms of left-sided pyelonephritis. CT scan also demonstrates an area of hypoattenuation consistent with focal pyelonephritis versus infarct. She has been treated with IV antibiotics and has improved significantly. She feels much better and her pain is much more tolerable now. She states the last time she had an infection was approximately 4 years ago when she was . She has no prior urologic history. PAST MEDICAL HISTORY: No chronic medical problems. PAST SURGICAL HISTORY: None. CHRONIC MEDICATIONS: None. SOCIAL HISTORY: She smokes one pack of cigarettes per day. Denies history of alcohol use. Denies drug use. 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 ALLERGIES: NO KNOWN DRUG ALLERGIES. REVIEW OF SYSTEMS: RESPIRATORY: No shortness of breath. CARDIOVASCULAR: No chest pain or palpitations. GASTROINTESTINAL: Denies chronic constipation or diarrhea. MUSCULOSKELETAL: No history of arthritis. PHYSICAL EXAMINATION: GENERAL: She is awake, alert. She is in no distress. VITAL SIGNS: Temperature 98.8, blood pressure 138/68, pulse 82. HEENT: Normocephalic, atraumatic. NECK: Supple without masses. CHEST: Clear to auscultation. CARDIOVASCULAR: Regular rate and rhythm. ABDOMEN: Soft, nontender. No palpable masses. Liver and spleen not palpable. No abdominal tenderness noted. LABORATORY DATA: Urine culture negative to date. CT scan, left renal hypoperfusion area versus focal pyelonephritis, left kidney. IMPRESSION: Signs, symptoms, and story most consistent with left-sided pyelonephritis. Interestingly, her urine culture is negative. She has responded quite well to antibiotic therapy. She does not have a long history of infections and in fact states the only other time she can remember infection was when she was approximately 4 years ago. RECOMMENDATION: 1. Levaquin 500 mg one p.o. daily x3 weeks. 2. Followup imaging in 3-4 weeks to ensure healing of the left kidney. Job ID: [id number]
[2018-11-08] MEDS: NS 0.9% w/ 40 MEQ KCL 1,000 ML IV SCH (05:31)
[2018-11-08 07:43] VITALS: BP 92/61; TEMP 98.7
[2018-11-08] MEDS: Senokot S 8.6-50 MG TAB PO SCH (08:18)
[2018-11-08] MEDS: Bisacodyl 5 MG TAB PO PRN (08:29)
--- NOTE | 2018-11-08 12:41 | PDOC.PN ---
- Subjective Encounter Start Date: 11/08/18 Encounter Start Time: 11:00 Patient seen and examined. No new complaints. No overnight events - Objective Resuscitation Status - Order Detail: 11/05/18 07:30 Resuscitation Status Routine Resuscitation Status: FULL: Full Resuscitation MAR Reviewed: Yes Vital Signs & Weight: Vital Signs (12 hours) Temp Pulse Resp BP Pulse Ox 11/08/18 08:00 99 11/08/18 07:42 98.7 F 74 16 92/61 99 Weight Admit Weight 201 lb 8 oz Weight 201 lb 8 oz I&O: 11/07/18 11/08/18 11/09/18 06:59 06:59 06:59 Intake Total 2925 4150 Balance 2925 4150 Result Diagrams: 11/07/18 06:03 11/06/18 06:21 Phys Exam - Physical Examination Constitutional: NAD HEENT: PERRLA, moist MMs, sclera anicteric Neck: no JVD, supple Respiratory: no wheezing, no rales, no rhonchi Cardiovascular: RRR, no significant murmur, no rub Gastrointestinal: soft, non-tender, no distention, positive bowel sounds Musculoskeletal: no edema, pulses present Neurological: non-focal, normal sensation, moves all 4 limbs Lymphatic: no nodes Psychiatric: normal affect, A&O x 3 Skin: no rash, normal turgor Dx/Plan (1) MICHEAL (acute kidney injury) Code(s): N17.9 - ACUTE KIDNEY FAILURE, UNSPECIFIED Status: Resolved (2) Abnormal LFTs Code(s): R94.5 - ABNORMAL RESULTS OF LIVER FUNCTION STUDIES Status: Acute (3) Hypokalemia Code(s): E87.6 - HYPOKALEMIA Status: Acute (4) Lactic acidosis Code(s): E87.2 - ACIDOSIS Status: Resolved (5) Sepsis Code(s): A41.9 - SEPSIS, UNSPECIFIED ORGANISM Status: Acute (6) Cholelithiases Code(s): K80.20 - CALCULUS OF GALLBLADDER W/O CHOLECYSTITIS W/O OBSTRUCTION Status: Chronic (7) Obesity (BMI 30.0-34.9) Code(s): E66.9 - OBESITY, UNSPECIFIED Status: Chronic - Plan cont current plan of care, continue antibiotics * medication reviewed as below * symptomatic treatment * see discharge natasha. Review of Systems - Review of Systems ENT: negative: Ear Pain, Ear Discharge, Nose Pain, Nose Discharge, Nose Congestion, Mouth Pain, Mouth Swelling, Throat Pain, Throat Swelling, Other Respiratory: negative: Cough, Dry, Shortness of Breath, Hemoptysis, SOB with Excertion, Pleuritic Pain, Sputum, Wheezing Cardiovascular: negative: chest pain, palpitations, orthopnea, paroxysmal nocturnal dyspnea, edema, light headedness, other Gastrointestinal: negative: Nausea, Vomiting, Abdominal Pain, Diarrhea, Constipation, Melena, Hematochezia, Other Genitourinary: negative: Dysuria, Frequency, Incontinence, Hematuria, Retention , Other Musculoskeletal: negative: Neck Pain, Shoulder Pain, Arm Pain, Back Pain, Hand Pain, Leg Pain, Foot Pain, Other Skin: negative: Rash, Lesions, Erick, Bruising, Other - Medications/Allergies Allergies/Adverse Reactions: Allergies Allergy/AdvReac Type Severity Reaction Status Date / Time No Known Allergies Allergy Unverified 11/04/18 19:36 Medications: Current Medications Acetaminophen (Tylenol) 650 mg PO Q8H PRN PRN Reason: Mild-Moderate Pain (1-5) Last Admin: 11/05/18 08:32 Dose: 650 mg Artificial Tears (Tears Naturale) 2 drop EA EYE PRN PRN PRN Reason: Dry Eyes Bisacodyl (Dulcolax) 10 mg PO DAILYPRN PRN PRN Reason: Constipation Last Admin: 11/08/18 08:29 Dose: 10 mg Calcium Carbonate (Tums) 1,000 mg PO Q4H PRN PRN Reason: Heartburn or Indigestion Last Admin: 11/06/18 20:14 Dose: 1,000 mg Guaifenesin (Robitussin Sf) 200 mg PO Q4H PRN PRN Reason: Cough Levofloxacin 500 mg/ Device 100 mls @ 100 mls/hr IVPB 0800 [facility] Last Admin: 11/08/18 08:20 Dose: 100 mls Potassium Chloride/Sodium Chloride (Ns 0.9% W/ 40 Meq Kcl) 1,000 mls @ 125 mls/ hr IV .Q8H KENN Last Admin: 11/08/18 05:31 Dose: 1,000 mls Loperamide HCl (Imodium) 2 mg PO PRN PRN PRN Reason: Diarrhea/Loose Stools Loratadine (Claritin) 10 mg PO DAILYPRN PRN PRN Reason: Sinus Symptoms Mineral Oil/White Petrolatum (Eucerin Cream) 0 gm TOP BIDPRN PRN PRN Reason: Dry Skin Morphine Sulfate (Morphine) 4 mg SLOW IVP Q4H PRN PRN Reason: Mild-Moderate Pain (1-5) Last Admin: 11/05/18 11:20 Dose: 4 mg Ondansetron HCl (Zofran) 4 mg IVP Q6H PRN PRN Reason: Nausea/Vomiting Last Admin: 11/05/18 19:57 Dose: 4 mg Ondansetron HCl (Zofran Odt) 4 mg PO Q6H PRN PRN Reason: Nausea/Vomiting Senna/Docusate Sodium (Senokot S) 1 tab PO BID [facility] Last Admin: 11/08/18 08:18 Dose: Not Given Sodium Chloride (Flush - Normal Saline) 10 ml IVF Q12HR [facility] Last Admin: 11/08/18 08:18 Dose: Not Given Sodium Chloride (Flush - Normal Saline) 10 ml IVF PRN PRN PRN Reason: Saline Flush Sodium Chloride ([place] Nasal [place] 0.65%) 0 ml EA NARE QIDPRN PRN PRN Reason: Nasal Congestion Throat Lozenges (Cepastat Lozenges) 1 bhakti PO Q2H PRN PRN Reason: Sore Throat Zolpidem Tartrate (Ambien) 5 mg PO HSPRN PRN PRN Reason: Insomnia
--- NOTE | 2018-11-08 14:10 | DIS ---
DATE OF ADMISSION: 11/04/2018 DATE OF DISCHARGE: 11/08/2018 PRIMARY CARE PHYSICIAN: [facility] call admission. DISCHARGE DISPOSITION: Home. PRIMARY DISCHARGE DIAGNOSES: Acute pyelonephritis, sepsis, abnormal LFT, hypokalemia, asymptomatic cholelithiasis, acute kidney injury, lactic acidosis. SECONDARY DISCHARGE DIAGNOSIS: Obesity with BMI of 31. PRIMARY PROCEDURES/OPERATION: None. RADIOLOGICAL INVESTIGATION: Abdomen and pelvis CT scan showed cholelithiasis, repeat abdomen and pelvis CT scan showed focal pyelonephritis. Abdominal ultrasound showed cholelithiasis without any gallbladder inflammation. Chest x-ray, normal. SIGNIFICANT LABS: Hemoglobin 12.2, creatinine 0.77, AST 206, ALT 320, alkaline phosphatase 174, albumin 3.2. Urinalysis is suggestive of UTI. Hepatitis profile negative. Blood culture and urine culture negative. DISCHARGE MEDICATIONS: Levofloxacin 500 mg p.o. daily for total 3 weeks. CONTRAINDICATIONS: None. CODE STATUS: Full code. INPATIENT [employer]: Dr. Nelson was consulted for abnormal LFT. Dr. Marco Mancini was consulted for pyelonephritis. TEST RESULTS PENDING ON DISCHARGE: None. DISCHARGE PLAN: The patient will follow up with Dr. Nelson for abnormal LFT and the patient will follow up with Dr. Mancini for her abnormal CT finding and this patient is advised to make an appointment with Dr. Mancini with repeat imaging to rule out renal abscess and the patient is also advised to get repeat LFT done for LFT abnormality. HOSPITAL COURSE: A 23-year-old female, who was admitted by Dr. Yolanda Echols, please see her H and P for further details. This patient was clinically having UTI symptoms as well as left-sided flank pain. She was also having high grade fever with clinically diagnosed acute pyelonephritis. She was not having any obstruction, but when we repeated CT abdomen and pelvis, there was focal pyelonephritis and that is why we consulted Urology, and Urology was not worried about any findings other than the discontinuing antibiotic therapy for another 3 weeks, and she will need another imaging in 3 weeks and follow up with them. The patient was also having abnormal LFT and that is why we consulted marine propulsion technician. This patient was not having any right upper quadrant pain or dyspepsia, but her LFT was abnormal and we found cholelithiasis on ultrasound and CT scan, and that is why we consulted them, and they were not suggestive of any acute cholelithiasis. This patient is completely asymptomatic upon that perspective. Hepatitis profile is negative. Her LFTs also improving. We are suspecting this abnormal LFT could be from sepsis, and that is why she will need repeat LFT test to be done in 1 or 2 weeks. Next thing is to follow up with Dr. Nelson on an outpatient basis for more investigation if needed. I have seen and examined this patient at bedside. Plan of care discussed with her today and the patient is medically stable for discharge. Job ID: [id number]
== END 2018-11-08 13:35 | disposition home or self-care (01) | DRG 872 ==
LOC: ERS 14:53 → T4-B 19:07
PROVIDERS: ADMIT Family Medicine; ATTEND Family Medicine
DX: A41.9 Sepsis, unspecified organism (principal); N17.9 Acute kidney failure, unspecified; N10 Acute pyelonephritis; E87.2 Acidosis; F17.210 Nicotine dependence, cigarettes, uncomplicated; E03.9 Hypothyroidism, unspecified; R94.5 Abnormal results of liver function studies; K80.20 Calculus of gallbladder without cholecystitis without obstruction; E66.9 Obesity, unspecified; E87.6 Hypokalemia; Z68.31 Body mass index [BMI] 31.0-31.9, adult
CPT/HCPCS: 36415; 71045; 74176; 74177; 76705; 80053; 80074; 80076; 81003; 81015; 82550; 83605; 83690; 84703; 85025; 87040; 87086; 94760; 96361; 96365; 96366; 96367; 96374; 96375; J0696; J1885; J1956; J2270; J2405; J3370; J3480; J3490; Q9966

== ENCOUNTER 2019-11-03 16:22 | Outpatient (CLI) | payer OTHER ==
--- NOTE | 2019-11-03 18:44 | ULT ---
ULTRASOUND OB COMPLETE: 11/03/19 HISTORY: Anatomy scan. COMPARISON: None. FINDINGS: Real time keita scale and color Doppler and spectral analysis in the gravid uterus was performed trans abdominal approach. There is a single viable intrauterine with heart rate documented at 140 beats per min [place]. The cervix is closed measuring 5 cm in length. Placenta is posterior and the presentation is vertex. BIOMETRY: Biparietal diameter: 5.85 cm 24 week, 0 day Head circumference: 21.61 cm 22 week, 5 day Abdominal circumference: 19.8 cm 24 week, 4 day Femur length: 4.34 cm 24 week, 2 day ANATOMY: The head, cerebellum, cisterna magnum, lateral ventricles, four chamber heart, stomach kidneys, cord insertion, bladder, spine, lips/nose upper extremities, three vessel cord are all normal. Lower extr emities were not well visualized. Placenta appears normal. IMPRESSION: Normal single viable intrauterine with average ultrasound age of 24 week, 1 day with estima carly date of delivery February 22, 2020. POS: HOME
== END 2019-11-03 16:23 | disposition home or self-care (01) ==
LOC: BICULT 16:22
PROVIDERS: ATTEND Family Medicine
DX: Z34.82 Encounter for supervision of other normal pregnancy, second trimester (principal); Z3A.24 24 weeks gestation of pregnancy
CPT/HCPCS: 76805

== ENCOUNTER 2020-02-14 22:43 | Day surgery (SDC) | payer OTHER ==
[2020-02-14 23:10] VITALS: BMI 34.9
[2020-02-14 23:16] VITALS: BP 107/71; TEMP 98.2
[2020-02-14] MEDS ORDERED: hydrALAZINE 20 MG/ML VIAL SLOW IVP PRN (23:36)
--- NOTE | 2020-02-14 23:38 | PDOC.LDHP ---
Labor and Delivery H&P Chief complaint: contractions HPI: 24 y/o at 38w0d, patient of Dr. Lozano, presents with ctx for the last 30 minutes every 5-10 mins. Denies VB, LOF, or decreased FM. ROS neg for HEENT, cv, pulm, gi, gu, neuro, psych, skin, musculoskeletal or constitutional symptoms other than mentioned above. OB History Details: 2 TSVDs Current complications: none Past Medical History: None Current medications: pre-elver vitamins Previous surgical history: none Allergies/Adverse Reactions: Allergies Allergy/AdvReac Type Severity Reaction Status Date / Time No Known Allergies Allergy Verified 02/14/20 23:09 Social history: none - Physical Exam Vital signs reviewed and normal: yes General: NAD, resting Lungs: nonlabored breathing Abdomen: gravid Extremeties: no edema FHT: category 1 (120s, mod variability, + accels, no decels) [place] contractions every: none - Vaginal Exam cm dilated: 3 Effacement: 50% Station: -3 - Assessment 24 y/o at 38w0d with no e/o active labor. status reassuring with reactive NST. - Plan -: D/c home with precautions. Advised to keep appointment for tomorrow.
== END 2020-02-14 23:48 | disposition home health service (06) ==
LOC: L&D/OP 22:43
PROVIDERS: ATTEND Family Medicine
DX: O47.1 False labor at or after 37 completed weeks of gestation (principal); Z3A.38 38 weeks gestation of pregnancy
CPT/HCPCS: 99282

== ENCOUNTER 2020-02-21 16:31 | Inpatient (IN) | payer OTHER ==
[~2020-02-21 16:31] MED LIST: Bupivacaine 0.25% HCL 30 ML VIAL ONE
[2020-02-21] MEDS: Lactated Ringer's 1,000 ML IV SCH (20:26)
[2020-02-21 20:28] VITALS: BMI 34.9
[2020-02-21] MEDS ORDERED: Ibuprofen 800 MG TAB PO PRN (20:31)
[2020-02-21] MEDS ORDERED: Ondansetron PF 4 MG/2 ML Vial IVP PRN (20:31)
[2020-02-21] MEDS ORDERED: NS / Oxytocin 40 units/1000ml 1,000 ML IV PRN (20:31)
[2020-02-21] MEDS ORDERED: Diphenoxylate HCl/Atropine Tablet PO PRN (20:31)
[2020-02-21] MEDS ORDERED: Butorphanol Tartrate 1 MG/ML VIAL SLOW IVP PRN (20:31)
[2020-02-21] MEDS ORDERED: hydrALAZINE 20 MG/ML VIAL SLOW IVP PRN (20:31)
[2020-02-21] MEDS ORDERED: HYDROcodone/Acetaminophen 5/325 mg Tablet PO PRN (20:31)
[2020-02-21] MEDS ORDERED: Misoprostol 200 MCG TAB PR PRN (20:31)
[2020-02-21] MEDS ORDERED: Promethazine HCl 25 MG/ML VIAL IM PRN (20:31)
[2020-02-21] MEDS ORDERED: Carboprost 250 MCG/ML AMP IM PRN (20:31)
[2020-02-21] MEDS ORDERED: Lidocaine 1% (PF) 30 ML VIAL SC PRN (20:31)
[2020-02-21] MEDS ORDERED: Methylergonovine 0.2 MG/ML VIAL IM PRN (20:31)
[2020-02-21] MEDS ORDERED: NS w/ Oxytocin 10 units 500 ML IV SCH (20:45)
[2020-02-21 20:59] LABS: Hemoglobin 11.8 g/dL (12.0-16.0); Mean Corpuscular HGB CONC 33.9 g/dL (32.0-36.0); Mean Corpuscular Hemoglobin 30.6 pg (27.0-31.0); Mean Corpuscular Volume 90.3 fL (78.0-98.0); Mean Platelet Volume 10.1 fL (7.4-10.4); Platelet Count 250 thou/uL (130-400); RBC Distribution Width 13.8 % (11.5-14.5); Red Blood Cell (RBC) Count 3.86 mill/uL (4.20-5.40)
[2020-02-21 21:37] LABS: Syphilis Antibody Nonreactive (Nonreactive); Syphilis Antibody Index 0.03 S/CO (<1.00 Non-Reactive)
[2020-02-21 23:25] LABS: Hep B Surf Ag Non-Reactive S/CO (NonReactive)
[2020-02-22] MEDS ORDERED: Penicillin G Potassium 5 MILL.UNITS in Sodium Chloride 0.9% 100 ML IVPB SCH
[2020-02-22] MEDS ORDERED: Misoprostol 100 MCG TAB PO SCH ×2 (01:00)
[2020-02-22] MEDS: Penicillin G 2.5 MILL.units 2.5 MILL.UNITS in Premix Bag 1 BAG IVPB SCH ×4 (05:03→17:05)
[2020-02-22] MEDS: NS w/ Oxytocin 10 units 500 ML IV SCH (05:03)
[2020-02-22] MEDS: Lactated Ringer's 1,000 ML IV SCH ×2 (08:09→10:47)
[2020-02-22] MEDS ORDERED: Fentanyl 4 mcg/Bup 0.1% Cadd 100 ML ONE ×2 (09:05→17:38)
[2020-02-22] MEDS ORDERED: Acetaminophen 325 MG TAB PO PRN (09:47)
[2020-02-22] MEDS ORDERED: diphenhydrAMINE 50 MG/ML VIAL IVP PRN (09:47)
[2020-02-22] MEDS ORDERED: Lactated Ringer's 500 ML IV PRN (09:47)
[2020-02-22] MEDS ORDERED: Naloxone HCl 0.4 mg/ml Vial IVP PRN ×2 (09:47)
[2020-02-22] MEDS ORDERED: Promethazine HCl 25 MG/ML VIAL IM PRN (09:47)
[2020-02-22] MEDS ORDERED: Ondansetron PF 4 MG/2 ML Vial IVP PRN ×2 (09:47→22:31)
[2020-02-22] MEDS ORDERED: EPHEDRINE 25 MG/5 ML SYRINGE SLOW IVP PRN (09:47)
[2020-02-22] MEDS ORDERED: Communication Order-Pharmacy FS SCH (10:00)
[2020-02-22] MEDS ORDERED: Fentanyl 4 mcg/Bupivacaine 0.1% Cassette 100 ML EPIDURAL SCH (10:00)
[2020-02-22] MEDS ORDERED: Lidocaine 1% (PF) 30 ML VIAL ONE (19:30)
[2020-02-22] MEDS ORDERED: NS / Oxytocin 40 units/1000ml 1,000 ML ONE (19:30)
[2020-02-22] MEDS ORDERED: Azithromycin 500 MG VIAL ONE (20:05)
[2020-02-22] MEDS ORDERED: Azithromycin 500 MG in Sodium Chloride 0.9% 250 ML 250 ML IVPB SCH (20:30)
[2020-02-22] MEDS ORDERED: Misoprostol 200 MCG TAB ONE (20:45)
[2020-02-22] MEDS: CEFAZOLIN 2 GM in Premix Bag 1 BAG IVPB SCH (22:17)
[2020-02-22] MEDS ORDERED: Bisacodyl 10 MG SUPP PR PRN (22:31)
[2020-02-22] MEDS ORDERED: hydrALAZINE 20 MG/ML VIAL SLOW IVP PRN (22:31)
[2020-02-22] MEDS ORDERED: Milk Of Magnesia 30 ML UDCUP PO PRN (22:31)
[2020-02-22] MEDS ORDERED: Benzocaine-Menthol 82.5 ML CAN TOP PRN (22:31)
[2020-02-22] MEDS ORDERED: NS / Oxytocin 40 units/1000ml 1,000 ML IV SCH (22:31)
[2020-02-22] MEDS ORDERED: diphenhydrAMINE 25 MG CAP PO PRN (22:31)
[2020-02-22] MEDS ORDERED: Lanolin Ointment 7 GM TUBE TOP PRN (22:31)
[2020-02-22] MEDS ORDERED: Preparation H Ointment 28 GM TUBE PR PRN (22:31)
[2020-02-22] MEDS: Ibuprofen 800 MG TAB PO SCH (23:47)
[2020-02-23] MEDS: HYDROcodone/Acetaminophen 5/325 mg Tablet PO PRN ×4 (00:09→21:05)
[2020-02-23] MEDS: Penicillin G 2.5 MILL.units 2.5 MILL.UNITS in Premix Bag 1 BAG IVPB SCH (00:17)
[2020-02-23] MEDS: Lactated Ringer's 1,000 ML IV SCH (00:17)
[2020-02-23] MEDS: NS w/ Oxytocin 10 units 500 ML IV SCH (00:18)
[2020-02-23] MEDS: CEFAZOLIN 2 GM in Premix Bag 1 BAG IVPB SCH ×2 (05:06→14:02)
[2020-02-23] MEDS: Ibuprofen 800 MG TAB PO SCH ×3 (05:07→21:05)
[2020-02-23 05:56] LABS: Hemoglobin 11.8 g/dL (12.0-16.0); Mean Corpuscular HGB CONC 32.5 g/dL (32.0-36.0); Mean Corpuscular Hemoglobin 29.7 pg (27.0-31.0); Mean Corpuscular Volume 91.4 fL (78.0-98.0); Mean Platelet Volume 9.9 fL (7.4-10.4); Platelet Count 222 thou/uL (130-400); RBC Distribution Width 13.8 % (11.5-14.5); Red Blood Cell (RBC) Count 3.96 mill/uL (4.20-5.40); White Blood Cell (WBC) Count 13.5 thou/uL (4.8-10.8)
[2020-02-23] MEDS ORDERED: Adacel (T-DAP) 0.5 ML SYRINGE IM ONE (09:00)
[2020-02-23] MEDS: Prenatal Vitamin 1 TAB PO SCH (09:03)
[2020-02-23] MEDS: Docusate Calcium (SURFAK) 240 MG CAP PO SCH ×2 (09:03→21:05)
[2020-02-23] MEDS: Ferrous Sulfate 325 MG TAB PO SCH ×2 (09:38→16:35)
[2020-02-23 22:02] VITALS: TEMP 98.4
[2020-02-24] MEDS: Ibuprofen 800 MG TAB PO SCH ×2 (05:38→13:58)
[2020-02-24] MEDS: HYDROcodone/Acetaminophen 5/325 mg Tablet PO PRN ×2 (05:38→10:10)
[2020-02-24] MEDS: Ferrous Sulfate 325 MG TAB PO SCH (08:30)
[2020-02-24 08:41] VITALS: BP 109/86
[2020-02-24] MEDS: Docusate Calcium (SURFAK) 240 MG CAP PO SCH (10:09)
[2020-02-24] MEDS: Prenatal Vitamin 1 TAB PO SCH (10:09)
== END 2020-02-24 15:35 | disposition home or self-care (01) | DRG 807 ==
LOC: L&D 19:52 → 3SW 02-22 22:38
PROVIDERS: ADMIT Family Medicine; ATTEND Family Medicine
PROC: 10907ZC Drainage of Amniotic Fluid, Therapeutic from Products of Conception, Via Natural or Artificial Opening (ICD-10-PCS; 2020-02-21)
PROC: 3E0P7VZ Introduction of Hormone into Female Reproductive, Via Natural or Artificial Opening (ICD-10-PCS; 2020-02-21)
PROC: 10E0XZZ Delivery of Products of Conception, External Approach (ICD-10-PCS; principal; 2020-02-22)
PROC: 10D17Z9 Manual Extraction of Products of Conception, Retained, Via Natural or Artificial Opening (ICD-10-PCS; 2020-02-22)
DX: O99.824 Streptococcus B carrier state complicating childbirth (principal); Z37.0 Single live birth; Z3A.39 39 weeks gestation of pregnancy; O73.0 Retained placenta without hemorrhage
CPT/HCPCS: 36415; 51702; 85027; 86780; 86850; 86900; 86901; 87340; J0456; J0690; J1200; J2001; J2540; J2590; J3490; J7050; S0020